=== PATIENT | male | born 1990 | race Two or more races ===

== ENCOUNTER 2018-08-03 12:08 | Emergency (ER) | payer SELFPAY ==
[2018-08-03 12:15] VITALS: BP 129/63; PULSE 92; TEMP 98.7; BMI 28.2
--- NOTE | 2018-08-03 12:47 | PDOC ---
History of Present Illness - General Chief Complaint: Sore Throat Stated Complaint: EAR PAIN/THROAT Time Seen by Provider: 08/03/18 12:24 History Source: Patient Exam Limitations: No Limitations - History of Present Illness Initial Comments: 08/03/18 12:42 Patient here with complaints of left ear and throat pain 3 days. States this felt feverish, has used Tylenol with some symptomatic relief. But is progressively worsening. Timing/Duration: unsure Severity: moderate Associated Symptoms: reports: fever/chills, headaches, malaise Past History - Travel Traveled outside of the country in the last 30 days: No Close contact w/someone who was outside of country & ill: No - Past Medical History Allergies/Adverse Reactions: Allergies Allergy/AdvReac Type Severity Reaction Status Date / Time ibuprofen Allergy Verified 08/03/18 12:41 Home Medications: Ambulatory Orders Azithromycin [Zithromax -] 250 mg PO UTDICT #6 tab 08/03/18 COPD: No - Suicide/Smoking/Psychosocial Hx Smoking History: Current every day smoker Information on smoking cessation initiated: No Review of Systems - Review of Systems Able to Perform ROS?: Yes Is the patient limited [place] proficient: Yes Constitutional: Yes: Symptoms Reported, See HPI, Fever, Malaise HEENTM: Yes: Symptoms Reported, See HPI, Ear Pain, Throat Pain Respiratory: Yes: See HPI. No: Symptoms reported, Cough Musculoskeletal: Yes: Symptoms Reported, See HPI, Muscle Weakness Integumentary: Yes: See HPI. No: Symptoms Reported All Other Systems: Reviewed and Negative *Physical Exam - Vital Signs Last Vital Signs Temp Pulse Resp BP Pulse Ox 98.7 F 92 H 18 129/63 98 08/03/18 12:12 08/03/18 12:12 08/03/18 12:12 08/03/18 12:12 08/03/18 12:12 - Physical Exam General Appearance: Yes: Nourished, Appropriately Dressed, Apparent Distress, Mild Distress, Moderate Distress HEENT: positive: LORAINE, Pharyngeal Erythema, Rhinorrhea. negative: TMs Normal ( swollen, bulging, erythematous left TM, unable to visualize landmarks. Right ear is congested but landmarks visualized.), Pharynx Normal, Tonsillar Exudate, Tonsillar Erythema Neck: positive: Tender, Supple, Lymphadenopathy (R), Lymphadenopathy (L) Respiratory/Chest: positive: Lungs Clear, Normal Breath Sounds Gastrointestinal/Abdominal: positive: Normal Bowel Sounds, Soft. 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 intact, Fully Oriented, Alert, Normal Mood/ Affect, Normal Response, Motor Strength 5/5 Moderate Sedation - Procedure Monitoring Vital Signs: Procedure Monitoring Vital Signs Temperature 98.7 F 08/03/18 12:12 Pulse Rate 92 H 08/03/18 12:12 Respiratory Rate 18 08/03/18 12:12 Blood Pressure 129/63 08/03/18 12:12 O2 Sat by Pulse Oximetry (%) 98 08/03/18 12:12 Medical Decision Making - Medical Decision Making 08/03/18 12:45 Otitis media, treat with a Z-Albino *DC/Admit/Observation/Transfer Diagnosis at time of Disposition: Otitis media Qualifiers: Otitis media type: unspecified Chronicity: acute Qualified Code(s): H66.90 - Otitis media, unspecified, unspecified ear - Discharge Dispostion Disposition: HOME Condition at time of disposition: Stable Decision to Admit order: No - Prescriptions Prescriptions: Azithromycin [Zithromax -] 250 mg PO UTDICT #6 tab - Referrals - Patient Instructions Printed Discharge Instructions: Middle Ear Infection Additional Instructions: Rest, lots of fluids; water, teas, soups Saltwater girls and steamy showers Hot wet soaks to ear/hot packs may help relieve some pain Continue ibuprofen or Tylenol for pain and fevers Complete all antibiotics as directed followup with private physician / ENT doctor in 2-3 days - Post Discharge Activity Forms/Work/School Notes: Back to Work
== END 2018-08-03 12:53 | disposition home or self-care (01) ==
LOC: JERFT 12:08
DX: H66.92 Otitis media, unspecified, left ear (principal)
CPT/HCPCS: 99281-25